=== PATIENT | female | born 1995 | race Caucasian/White ===

== ENCOUNTER 2020-10-21 01:03 | Emergency (ER) | payer OTHER ==
[~2020-10-21] VITALS: Ht 162.6 cm; Wt 77.1 kg
[2020-10-21 01:15] VITALS: BP 125/70
--- NOTE | 2020-10-21 01:15 | NUR ---
to bed ambulatory
--- NOTE | 2020-10-21 01:20 | NUR ---
ERMD AT BEDSIDE.
--- NOTE | 2020-10-21 01:23 | NUR ---
MARI EMT AT BEDSIDE FOR EKG.
--- NOTE | 2020-10-21 01:24 | NUR ---
PT BIB SELF FOR C/O INTERMITTENT CHEST PAIN AND PRESSURE X 3 WEEKS. PAIN 7/10, RADIATES TO STERNUM AND UPPER BACK. PT REPORTS SEEING PCP FOR S/SX WITH EKG PERFORMED, WHICH CAME BACK NORMAL. LMP 10/14. CAP REFILL < 3 SECONDS. SPEECH IS CLEAR. AMBULATORY. A & O X4. MED HX: DENIES ALLERGIES: NKA
--- NOTE | 2020-10-21 01:40 | NUR ---
ERMD VERBAL ORDER FOR URINE . ORDER PLACED.
[2020-10-21] MEDS ORDERED: PANT40EC PO (01:47)
--- NOTE | 2020-10-21 01:51 | NUR ---
Patient discharged with v/s stable. Written and verbal after care instructions given and explained. Patient alert, oriented and verbalized understanding of instructions. Ambulatory with steady gait. All questions addressed prior to discharge. ID band removed. Patient advised to follow up with PMD. Rx of PROTONIX given. Patient educated on indication of medication including possible reaction and side effects. Opportunity to ask questions provided and answered.
== END 2020-10-21 01:51 | disposition home or self-care (01) ==
LOC: MED 01:03
DX: R07.2 Precordial pain (principal)
CPT/HCPCS: 71045; 81025; 93005; 99283

== ENCOUNTER 2020-12-09 12:22 | Emergency (ER) | payer OTHER ==
[~2020-12-09] VITALS: Ht 162.6 cm; Wt 81.2 kg
[~2020-12-09 12:22] MED LIST: PANT40EC PO
[2020-12-09 12:52] VITALS: BP 156/89
--- NOTE | 2020-12-09 12:55 | NUR ---
PT SENT TO LOBBY TO WAIT FOR AVAILABLE BED OR MSE.
--- NOTE | 2020-12-09 13:10 | NUR ---
Nahomy flowers in ED - 12/09/20 at 1314 by [facility] IV removed, catheter intact and site benign. Applied folded 4x4 gauze and tape to stop bleeding.
[2020-12-09] MEDS ORDERED: LACT1CAP70 PO (13:17)
[2020-12-09] MEDS ORDERED: METR500T1 PO (13:17)
[2020-12-09 14:27] VITALS: BP 156/89
--- NOTE | 2020-12-09 14:27 | NUR ---
Patient discharged with v/s stable. Written and verbal after care instructions given and explained. Patient alert, oriented and verbalized understanding of instructions. Ambulatory with steady gait. All questions addressed prior to discharge. ID band removed. Patient advised to follow up with PMD. Rx of LACTOBACILLUS COMBO NO.10, METRONIDAZOLE given. Patient educated on indication of medication including possible reaction and side effects. Opportunity to ask questions provided and answered.
== END 2020-12-09 14:27 | disposition home or self-care (01) ==
LOC: MED 12:22
DX: A07.1 Giardiasis [lambliasis] (principal); K52.9 Noninfective gastroenteritis and colitis, unspecified; Z79.899 Other long term (current) drug therapy
CPT/HCPCS: 99283

== ENCOUNTER 2023-04-16 21:47 | Emergency (ER) | payer OTHER ==
[~2023-04-16] VITALS: Ht 162.6 cm; Wt 80.7 kg
[~2023-04-16 21:47] MED LIST changes: +LACT1CAP70 PO; +METR500T1 PO
[2023-04-16 22:30] VITALS: BP 129/72; PULSE 81; RESP 18; TEMP 98.3; O2SAT 99
[2023-04-17 00:38] VITALS: BP 129/72; PULSE 81; RESP 18; TEMP 98.3; O2SAT 99
== END 2023-04-17 00:38 | disposition home or self-care (01) ==
LOC: MED 21:47
DX: T16.2XXA Foreign body in left ear, initial encounter (principal); W44.8XXA Other foreign body entering into or through a natural orifice, initial encounter; Y93.89 Activity, other specified; Y92.89 Other specified places as the place of occurrence of the external cause; Y99.8 Other external cause status
CPT/HCPCS: 69200; 99284